=== PATIENT | male | born 1955 | race Caucasian/White ===

== ENCOUNTER 2021-07-31 14:57 | Outpatient (CLI) | payer MEDICARE ==
--- NOTE | 2021-07-31 17:06 | CT Report ---
PROCEDURE: Low Dose Lung Cancer Screen INDICATIONS: SCREENING FOR LUNG CA TECHNIQUE: Noncontrast low-dose 5 mm thick sections acquired from the pulmonary apices to the posterior costophr enic angles. 7 mm thick coronal and sagittal MIP reformats were then acquired. For radiation dose r eduction, the following was used: automated exposure control, adjustment of mA and/or kV according t o patient size. COMPARISON: None. FINDINGS: Lungs and pleura: Scattered subsegmental scarring/atelectasis. No acute consolidation. Diffuse kendell bronchial cuffing suggestive of nonspecific bronchitis and/or reactive airways disease. No suspicious pulmonary nodules identified. Upper lobe predominant centrilobular emphysema. Pleura: No pleural effusion or pneumothorax. Heart: Normal. Normal in size. No pericardial effusion. Severe coronary artery calcifications. Lymph nodes: Normal. Thyroid: Negative Aorta: Normal in size. Scattered atheromatous calcifications seen in the aorta. Pulmonary arteries: Normal. Esophagus: Normal. Bones: Diffuse spondolytic changes and facet arthropathy. No compression fracture. Upper abdomen: Normal. IMPRESSION: No suspicious pulmonary nodules. Lung-RADS 1. Recommend annual screening lung CT. Severe coronary atherosclerosis Lung-RADS 0: Prior chest CT needed for comparison. Part of all of lungs cannot be evaluated. Lung-RADS 1: No nodules or definitely benign nodules, continue annual screening in 12 months. "Nodules with specific calcifications: complete, central, popcorn, concentric rigns and fat containi ng nodules. Lung-RADS 2: Very low likelihood of becoming clinically active CA due to size or lack of growth, con tinue annual screening in 12 months. "Solid nodules: < 6 mm or new < 4 mm. "Part solid nodules: < 6 mm total diameter on baseline. "Non-solid or ground-glass nodules: < 20 mm OR 20 mm or more (unchanged or slowly growing). "Category 3 and 4 nodules unchanged for 3 months or more. Lung-RADS 3: Probably benign; recommend [address] "Solid nodules: 6 to <8 mm at baseline OR new 4 to <6 mm nodule. "Part solid nodules: 6 mm or more with solid component of < 6 mm OR new < 6 mm lesion. "Non-solid or ground-glass nodules: 20 mm or more on baseline, or new. Lung-RADS 4A: Suspicious; recommend 3-month followup CT, or PET-CT when there is a solid component o f 8 mm or more. "Solid nodules: 8 to <15 mm at baseline, OR growing < 8 mm, OR new 6 to <8 mm. "Part-solid nodules: 6 mm ore more with solid component 6 to < 8 mm, OR with new/growing < 4 mm higinio id component. "Endobronchial nodule. Lung-RADS 4B: Suspicious; recommend chest CT with or without contrast, PET-CT and/or biopsy. PET-CT may be used if there is a solid component of 8 mm or more. "Solid nodules: 15 mm or more, OR new/growing 8 mm or more. "Part-solid nodules: solid component of 8 mm or more, OR new/growing solid component of 4 mm or more . Lung-RADS 4X: Category 3-4 nodules with additional features or findings that increase the suspicion for malignancy. Treat the same as 4B. "Examples: spiculated margins, ground-glass nodule doubling in size in 1 year, enlarged lymph nodes. S modifier: Clinically significant or potentially clinically significant findings (not lung CA). C modifier: Patients with prior dx of lung CA who return to screening. Growth: defined as size increase of > 1.5 mm. Reviewed by: Gerson Dee MD on 07/31/2021 5:05 PM PST Approved by: Gerson Dee MD on 07/31/2021 5:05 PM PST Station ID: [id number]
== END 2021-07-31 14:58 | disposition home or self-care (01) ==
LOC: DI 14:57
PROVIDERS: ATTEND Family Medicine
DX: Z12.2 Encounter for screening for malignant neoplasm of respiratory organs (principal); F17.210 Nicotine dependence, cigarettes, uncomplicated; I25.10 Atherosclerotic heart disease of native coronary artery without angina pectoris

== ENCOUNTER 2021-09-15 08:46 | Outpatient (CLI) | payer MEDICARE ==
[2021-09-15 09:29] LABS: BASOPHILS # (AUTO) 0.1 10^3/uL (0.0-0.1); BASOPHILS % (AUTO) 0.5 %; EOSINOPHILS # (AUTO) 0.2 10^3/uL (0.0-0.7); EOSINOPHILS % (AUTO) 2.4 %; HGB - HEMOGLOBIN 14.7 g/dL (14.0-18.0); LYMPHOCYTES # (AUTO) 2.2 10^3/uL (1.5-3.5); LYMPHOCYTES % (AUTO) 23.3 %; MEAN CORPUSCULAR HEMOGLOBIN 32.4 pg (27.0-31.0); MEAN CORPUSCULAR HGB CONC 33.4 g/dL (32.0-36.0); MEAN CORPUSCULAR VOLUME 96.9 fL (80.0-94.0); MEAN PLATELET VOLUME 10.6 fL (7.4-11.4); MONOCYTES # (AUTO) 0.8 10^3/uL (0.0-1.0); MONOCYTES % (AUTO) 8.1 %; NEUTROPHILS # (AUTO) 6.2 10^3/uL (1.5-6.6); NEUTROPHILS % (AUTO) 65.5 %; PLT - PLATELET COUNT 209 10^3/uL (130-450); RED BLOOD COUNT 4.54 10^6/uL (4.70-6.10); RED CELL DISTRIBUTION WIDTH 12.6 % (12.0-15.0); WHITE BLOOD COUNT 9.5 x10^3/uL (4.8-10.8)
[2021-09-15 09:47] LABS: ALBUMIN 4.1 g/dL (3.2-5.5); ALBUMIN/GLOBULIN RATIO 1.1 (1.0-2.2); ALKALINE PHOSPHATASE 60 IU/L (42-121); ALT ALANINE AMINOTRANSFERASE 16 IU/L (10-60); AST ASPARTATE AMINOTRANSFERASE 15 IU/L (10-42); BILIRUBIN,TOTAL 0.8 mg/dL (0.2-1.0); BUN - BLOOD UREA NITROGEN 19 mg/dL (6-20); CALCIUM 9.6 mg/dL (8.5-10.3); CARBON DIOXIDE - CO2 27 mmol/L (21-32); CHLORIDE 101 mmol/L (101-111); CHOL/HDL RATIO 6.3 (<5.0); CHOLESTEROL 183 mg/dL; GFR - MDRD 75 (>89); GLUCOSE 136 mg/dL (70-100); HDL CHOLESTEROL 29 mg/dL; LDL CHOLESTEROL,CALCULATED 120 mg/dL; LDL/HDL RATIO 4.1 (<3.6); POTASSIUM 4.7 mmol/L (3.5-5.0); SODIUM 138 mmol/L (135-145); TOTAL PROTEIN 7.9 g/dL (6.7-8.2); TRIGLYCERIDES 171 mg/dL; VLDL CHOLESTEROL 34 mg/dL
[2021-09-15 10:11] LABS: ESTIMATED AVERAGE GLUCOSE 140 mg/dL (70-100); HEMOGLOBIN A1c% 6.5 % (4.27-6.07)
== END 2021-09-15 08:47 | disposition home or self-care (01) ==
LOC: LAB 08:46
DX: N40.0 Benign prostatic hyperplasia without lower urinary tract symptoms (principal); E11.9 Type 2 diabetes mellitus without complications; Z13.21 Encounter for screening for nutritional disorder; I25.10 Atherosclerotic heart disease of native coronary artery without angina pectoris; Z12.5 Encounter for screening for malignant neoplasm of prostate
CPT/HCPCS: 36415; 80053; 80061; 82306; 83036; 85025; G0103; 83721; 84153

== ENCOUNTER 2022-07-17 07:34 | Outpatient (CLI) | payer OTHER, MEDICARE ==
[2022-07-17 12:11] LABS: BASOPHILS # (AUTO) 0.1 10^3/uL (0.0-0.1); BASOPHILS % (AUTO) 0.7 %; EOSINOPHILS # (AUTO) 0.2 10^3/uL (0.0-0.7); EOSINOPHILS % (AUTO) 1.8 %; HCT - HEMATOCRIT 44.3 % (42.0-52.0); HGB - HEMOGLOBIN 14.7 g/dL (14.0-18.0); LYMPHOCYTES # (AUTO) 2.4 10^3/uL (1.5-3.5); MEAN CORPUSCULAR HEMOGLOBIN 32.6 pg (27.0-31.0); MEAN CORPUSCULAR HGB CONC 33.2 g/dL (32.0-36.0); MEAN CORPUSCULAR VOLUME 98.2 fL (80.0-94.0); MEAN PLATELET VOLUME 11.5 fL (7.4-11.4); MONOCYTES # (AUTO) 1.1 10^3/uL (0.0-1.0); MONOCYTES % (AUTO) 10.3 %; NEUTROPHILS # (AUTO) 7.1 10^3/uL (1.5-6.6); NEUTROPHILS % (AUTO) 64.8 %; PLT - PLATELET COUNT 230 10^3/uL (130-450); RED BLOOD COUNT 4.51 10^6/uL (4.70-6.10); RED CELL DISTRIBUTION WIDTH 13.2 % (12.0-15.0); WHITE BLOOD COUNT 10.9 x10^3/uL (4.8-10.8)
[2022-07-17 12:31] LABS: ESTIMATED AVERAGE GLUCOSE 140 mg/dL (70-100); HEMOGLOBIN A1c% 6.5 % (4.27-6.07)
[2022-07-17 12:56] LABS: ALBUMIN 4.3 g/dL (3.2-5.5); ALBUMIN/GLOBULIN RATIO 1.2 (1.0-2.2); ALKALINE PHOSPHATASE 64 IU/L (42-121); ALT ALANINE AMINOTRANSFERASE 20 IU/L (10-60); AST ASPARTATE AMINOTRANSFERASE 15 IU/L (10-42); BILIRUBIN,TOTAL 0.8 mg/dL (0.2-1.0); BUN - BLOOD UREA NITROGEN 21 mg/dL (6-20); CALCIUM 9.9 mg/dL (8.5-10.3); CARBON DIOXIDE - CO2 27 mmol/L (21-32); CHLORIDE 103 mmol/L (101-111); CHOL/HDL RATIO 5.8 (<5.0); CHOLESTEROL 152 mg/dL; CREATININE 1.1 mg/dL (0.6-1.2); GFR - MDRD 67 (>89); GLUCOSE 141 mg/dL (70-100); HDL CHOLESTEROL 26 mg/dL; LDL CHOLESTEROL,CALCULATED 78 mg/dL; SODIUM 140 mmol/L (135-145); TOTAL PROTEIN 7.8 g/dL (6.7-8.2); TRIGLYCERIDES 241 mg/dL; VLDL CHOLESTEROL 48 mg/dL
== END 2022-07-17 07:35 | disposition home or self-care (01) ==
LOC: LAB.N 07:34
PROVIDERS: ATTEND Family Medicine
DX: E11.9 Type 2 diabetes mellitus without complications (principal); N40.1 Benign prostatic hyperplasia with lower urinary tract symptoms; R39.12 Poor urinary stream; I25.10 Atherosclerotic heart disease of native coronary artery without angina pectoris; Z12.5 Encounter for screening for malignant neoplasm of prostate
CPT/HCPCS: 36415; 80053; 80061; 83036; 83721; 84153; 85025

== ENCOUNTER 2023-01-19 07:16 | Outpatient (CLI) | payer OTHER, MEDICARE ==
[2023-01-19 07:30] LABS: BASOPHILS # (AUTO) 0.1 10^3/uL (0.0-0.1); BASOPHILS % (AUTO) 0.5 %; EOSINOPHILS # (AUTO) 0.2 10^3/uL (0.0-0.7); EOSINOPHILS % (AUTO) 1.6 %; HCT - HEMATOCRIT 45.5 % (42.0-52.0); HGB - HEMOGLOBIN 14.9 g/dL (14.0-18.0); LYMPHOCYTES # (AUTO) 2.5 10^3/uL (1.5-3.5); LYMPHOCYTES % (AUTO) 22.1 %; MEAN CORPUSCULAR HEMOGLOBIN 32.2 pg (27.0-31.0); MEAN CORPUSCULAR HGB CONC 32.7 g/dL (32.0-36.0); MEAN CORPUSCULAR VOLUME 98.3 fL (80.0-94.0); MEAN PLATELET VOLUME 10.7 fL (7.4-11.4); MONOCYTES % (AUTO) 9.1 %; NEUTROPHILS # (AUTO) 7.5 10^3/uL (1.5-6.6); NEUTROPHILS % (AUTO) 66.4 %; PLT - PLATELET COUNT 209 10^3/uL (130-450); RED BLOOD COUNT 4.63 10^6/uL (4.70-6.10); RED CELL DISTRIBUTION WIDTH 13.1 % (12.0-15.0); WHITE BLOOD COUNT 11.3 x10^3/uL (4.8-10.8)
[2023-01-19 07:44] LABS: ALBUMIN 4.2 g/dL (3.2-5.5); ALBUMIN/GLOBULIN RATIO 1.1 (1.0-2.2); BILIRUBIN,TOTAL 0.7 mg/dL (0.2-1.0); CALCIUM 9.5 mg/dL (8.5-10.3); CREATININE 1.2 mg/dL (0.6-1.2); POTASSIUM 5.2 mmol/L (3.5-5.0); TOTAL PROTEIN 7.9 g/dL (6.7-8.2)
[2023-01-19 08:30] LABS: ESTIMATED AVERAGE GLUCOSE 163 mg/dL (70-100); HEMOGLOBIN A1c% 7.3 % (4.27-6.07)
== END 2023-01-19 07:17 | disposition home or self-care (01) ==
LOC: LAB 07:16
PROVIDERS: ATTEND Family Medicine
DX: E11.9 Type 2 diabetes mellitus without complications (principal); N40.0 Benign prostatic hyperplasia without lower urinary tract symptoms; I25.10 Atherosclerotic heart disease of native coronary artery without angina pectoris; Z12.5 Encounter for screening for malignant neoplasm of prostate
CPT/HCPCS: 36415; 80053; 83036; 84153; 85025

== ENCOUNTER 2023-03-26 07:23 | Outpatient (CLI) | payer OTHER, MEDICARE ==
[2023-03-26 07:47] LABS: CHOL/HDL RATIO 5.9 (<5.0); CHOLESTEROL 135 mg/dL; HDL CHOLESTEROL 23 mg/dL; TRIGLYCERIDES 512 mg/dL (48-352)
[2023-03-26 08:00] LABS: LDL CHOLESTEROL,DIRECT 57 mg/dL (75-193); LDLD/HDL RATIO 2.5 (<3.6)
== END 2023-03-26 07:24 | disposition home or self-care (01) ==
LOC: LAB 07:23
PROVIDERS: ATTEND Internal Medicine Cardiovascular Disease
DX: E78.5 Hyperlipidemia, unspecified (principal)
CPT/HCPCS: 36415; 80061; 83721

== ENCOUNTER 2023-05-12 07:01 | Outpatient (CLI) | payer OTHER, MEDICARE ==
[2023-05-12 07:32] LABS: BASOPHILS # (AUTO) 0.1 10^3/uL (0.0-0.1); BASOPHILS % (AUTO) 0.6 %; EOSINOPHILS # (AUTO) 0.2 10^3/uL (0.0-0.7); EOSINOPHILS % (AUTO) 2.2 %; HCT - HEMATOCRIT 45.8 % (42.0-52.0); HGB - HEMOGLOBIN 15.2 g/dL (14.0-18.0); LYMPHOCYTES # (AUTO) 2.4 10^3/uL (1.5-3.5); LYMPHOCYTES % (AUTO) 21.9 %; MEAN CORPUSCULAR HEMOGLOBIN 32.3 pg (27.0-31.0); MEAN CORPUSCULAR HGB CONC 33.2 g/dL (32.0-36.0); MEAN CORPUSCULAR VOLUME 97.2 fL (80.0-94.0); MEAN PLATELET VOLUME 11.2 fL (7.4-11.4); MONOCYTES # (AUTO) 1.1 10^3/uL (0.0-1.0); MONOCYTES % (AUTO) 9.7 %; NEUTROPHILS # (AUTO) 7.3 10^3/uL (1.5-6.6); NEUTROPHILS % (AUTO) 65.2 %; PLT - PLATELET COUNT 203 10^3/uL (130-450); RED BLOOD COUNT 4.71 10^6/uL (4.70-6.10); WHITE BLOOD COUNT 11.1 x10^3/uL (4.8-10.8)
[2023-05-12 10:49] LABS: ESTIMATED AVERAGE GLUCOSE 148 mg/dL (70-100); HEMOGLOBIN A1c% 6.8 % (4.27-6.07)
== END 2023-05-12 07:02 | disposition home or self-care (01) ==
LOC: LAB 07:01
PROVIDERS: ATTEND Family Medicine
DX: E11.9 Type 2 diabetes mellitus without complications (principal); D75.89 Other specified diseases of blood and blood-forming organs
CPT/HCPCS: 36415; 83036; 85025

== ENCOUNTER 2023-06-19 10:50 | Emergency (ER) | payer MEDICARE, OTHER ==
[2023-06-19 11:31] LABS: BASOPHILS # (AUTO) 0.1 10^3/uL (0.0-0.1); BASOPHILS % (AUTO) 0.6 %; EOSINOPHILS # (AUTO) 0.1 10^3/uL (0.0-0.7); EOSINOPHILS % (AUTO) 1.1 %; HCT - HEMATOCRIT 44.3 % (42.0-52.0); HGB - HEMOGLOBIN 14.7 g/dL (14.0-18.0); LYMPHOCYTES # (AUTO) 2.3 10^3/uL (1.5-3.5); LYMPHOCYTES % (AUTO) 21.8 %; MEAN CORPUSCULAR HEMOGLOBIN 32.4 pg (27.0-31.0); MEAN CORPUSCULAR HGB CONC 33.2 g/dL (32.0-36.0); MEAN CORPUSCULAR VOLUME 97.6 fL (80.0-94.0); MEAN PLATELET VOLUME 10.5 fL (7.4-11.4); MONOCYTES # (AUTO) 0.6 10^3/uL (0.0-1.0); MONOCYTES % (AUTO) 6.1 %; NEUTROPHILS # (AUTO) 7.3 10^3/uL (1.5-6.6); NEUTROPHILS % (AUTO) 70.2 %; PLT - PLATELET COUNT 207 10^3/uL (130-450); RED BLOOD COUNT 4.54 10^6/uL (4.70-6.10); WHITE BLOOD COUNT 10.4 x10^3/uL (4.8-10.8)
[2023-06-19 11:44] LABS: ALBUMIN 4.4 g/dL (3.2-5.5); ALBUMIN/GLOBULIN RATIO 1.4 (1.0-2.2); BILIRUBIN,TOTAL 0.4 mg/dL (0.2-1.0); CALCIUM 9.3 mg/dL (8.5-10.3); CREATININE 1.2 mg/dL (0.6-1.3); POTASSIUM 4.6 mmol/L (3.5-4.5); TOTAL PROTEIN 7.5 g/dL (6.4-8.9)
--- NOTE | 2023-06-19 12:07 | XRAY Report ---
PROCEDURE: Chest 1 View X-Ray INDICATIONS: Chest Pain TECHNIQUE: One view of the chest was acquired. COMPARISON: None FINDINGS: Surgical changes and devices: None. Lungs and pleura: No pleural effusions or pneumothorax. Lungs are clear. Mediastinum: Mediastinal contours appear normal. Heart size is normal. Bones and chest wall: No suspicious bony lesions. Overlying soft tissues appear unremarkable. IMPRESSION: No acute cardiopulmonary findings Reviewed by: Richard Ceja MD on 06/19/2023 11:05 AM [place] Approved by: Richard Ceja MD on 06/19/2023 11:05 AM [place] Station ID: [id number]
[2023-06-19 13:22] VITALS: O2SAT 100
[2023-06-19 13:22] LABS: BILIRUBIN,URINE NEGATIVE (NEGATIVE); GLUCOSE, URINE (UA) NEGATIVE (NEGATIVE); KETONES,URINE (UA) NEGATIVE (NEGATIVE); LEUKOCYTE ESTERASE, URINE NEGATIVE (NEGATIVE); NITRITE,URINE NEGATIVE (NEGATIVE); OCCULT BLOOD,URINE NEGATIVE (NEGATIVE); PROTEIN,URINE NEGATIVE (NEGATIVE); UROBILINOGEN,URINE 0.2 (NORMAL) E.U./dL (NORMAL)
[2023-06-19 13:24] LABS: CLARITY,URINE CLEAR (CLEAR)
[2023-06-19] MEDS ORDERED: iohexoL-300 100 ML VIAL IVP ONE (14:32)
--- NOTE | 2023-06-19 14:34 | CT Report ---
PROCEDURE: Head W/O Stroke Protocol INDICATIONS: recurrent dizziness TECHNIQUE: Helical axial CT of the brain was obtained without contrast and reformatted in multiple p lanes. COMPLIANCE STATEMENTS: Radiation dose reduction was achieved using automated exposure control or adj ustment of mA and/or kV according to patient size. This study fulfills neurological imaging criteria for inclusion or exclusion of acute stroke therapies based on available published neurological imagi ng guidelines. COMPARISON: None. FINDINGS: CSF spaces: Ventricles are appropriate in size and position. No hydrocephalus. Basal cisterns unre markable. Brain: No midline shift. No intracranial masses or hemorrhage. Bazan-white matter interface is norm al. Skull and face: Calvarium and skull base are unremarkable without suspicious lesion. Sinuses: Mild right maxillary sinus mucosal thickening with debris IMPRESSION: Unremarkable CT of the brain. Mild right maxillary mucosal sinus disease Note: Critical results were discussed with patient's physician in the ER at 06/19/2023 1:32:22 PM [place] time. Reviewed by: Richard Ceja MD on 06/19/2023 1:33 PM AKDT Approved by: Richard Ceja MD on 06/19/2023 1:33 PM AKDT Station ID: [id number]
--- NOTE | 2023-06-19 14:36 | CT Report ---
PROCEDURE: CT Angio Head/Neck INDICATIONS: persistent dizziness, neck discomfort TECHNIQUE: Helical axial CT of the head and neck was obtained during the arterial phase of a intrave nous contrast injection utilizing an angiographic protocol. Multiplanar traditional and MIP reformat s were also obtained. COMPLIANCE STATEMENTS: Any estimate of proximal ICA stenosis was calculated using NASCET guidelines. Dose reduction techniques included either automated exposure control or adjustment of exposure maranda eters. COMPARISON: None. FINDINGS: Cerebral CT Angiogram: Internal carotid arteries: No acute findings. Intracranial ICA are patent with no significant steno sis. No occlusion. No aneurysm. Anterior cerebral arteries: Unremarkable. No significant stenosis. No occlusion. No aneurysm. Middle cerebral arteries: Unremarkable. No significant stenosis. No occlusion. No aneurysm. Posterior cerebral arteries: Unremarkable. No significant stenosis. No occlusion. No aneurysm. Basilar artery: Unremarkable. No significant stenosis. No occlusion. No aneurysm. Vertebral arteries: Unremarkable as visualized. Dural venous sinuses: Unremarkable given phase of enhancement. Other: Arterial phase appearance of the brain parenchyma is unremarkable. Neck CT Angiogram: Internal carotid arteries: Mild atherosclerotic plaque noted in the proximal left ICA without hemodyn amically significant stenosis utilizing NASCET criteria. Common carotid arteries: Unremarkable. No significant stenosis. No dissection or occlusion. External carotid arteries: Unremarkable. No occlusion. Vertebral arteries: Unremarkable. No significant stenosis. No dissection or occlusion. Incidental note is made of left vertebral artery origin directly from the aortic arch, an anatomic variant. Aortic Arch and Mediastinum: Partially visualized aortic arch unremarkable without evidence of aneury sm. Origins of the great vessels unremarkable. Other: Arterial phase soft tissues of the neck are unremarkable. IMPRESSION: Unremarkable CT angiogram of the head and neck. No large vessel occlusion, aneurysm or vascular malfo rmation Reviewed by: Richard Ceja MD on 06/19/2023 1:35 PM AKDT Approved by: Richard Ceja MD on 06/19/2023 1:35 PM AKDT Station ID: [id number]
--- NOTE | 2023-06-19 14:44 | ED Physician Documentation ---
History of Present Illness - Stated complaint Stated Complaint: LIGHT HEADED - Chief complaint Chief Complaint: Cardiac - History obtained from History obtained from: Patient, Family - Additonal information Additional information: This is a 68-year-old male who has a hx/o COPD, high cholesterol, DM2, GERD, who presents for about a week long history of feeling lightheaded, generally weak and tired. He also has noticed an achy and somewhat compressed feeling to the left shoulder. This feeling is nonexertional, and nonradiating. He does not have any shortness of breath, no other chest pain. He has not had a fever or chills, no difficulty breathing, no cough or other URI symptoms, no abdominal pain nausea vomiting or diarrhea. He states this morning he had a burning type sensation on the outside of his neck bilaterally though that has since gone away. He feels lightheaded and though perhaps his left ear is congested. He thought perhaps it was vertigo but it does not seem to worsen with turning his head side to side or if he stands up abruptly he does not feel like he will pass out. He has not had syncope or near syncope. He has never had similar symptoms in the past. He does not smoke cigarettes, but denies any other significant medical history. He does note that his father and a brother both had heart attacks at a younger age than him. Review of Systems Constitutional: reports: Fatigue. denies: Fever, Chills, Myalgias, Weight Loss, Sweats Ears: reports: Other (left ear fullness/congestion). denies: Loss of hearing, Ear pain, Drainage/discharge, Tinnitus/ringing, Foreign body Nose: reports: Congestion (chronic sinus congestion). denies: Rhinorrhea / runny nose Throat: reports: Reviewed and negative Cardiac: denies: Chest pain / pressure, Palpitations, Pedal edema, Calf pain Respiratory: reports: Reviewed and negative GI: reports: Reviewed and negative : reports: Reviewed and negative Skin: reports: Reviewed and negative Musculoskeletal: reports: Neck pain (on the outside of the neck bilat) Neurologic: reports: Generalized weakness. denies: Focal weakness, Numbness, Difficulty speaking, Near syncope, Syncope, Seizure, Confused, Altered mental status, Unresponsive, Headache, Head injury, LOC Psychiatric: reports: Reviewed and negative Endocrine: reports: Reviewed and negative PD PAST MEDICAL HISTORY - Past Medical History Past Medical History: Yes Cardiovascular: High cholesterol Respiratory: COPD Neuro: None Endocrine/Autoimmune: Type 2 diabetes GI: GERD : Benign prostate hypertrophy HEENT: Other Psych: None Musculoskeletal: None Derm: None - Past Surgical History Past Surgical History: Yes General: Cholecystectomy Ortho: Hip replacement HEENT: Tonsil/Adenoidectomy - Present Medications Home Medications: Ambulatory Orders Medication Instructions Recorded Confirmed Albuterol Sulf [Ventolin Hfa 1 - 2 puffs IH Q4HR PRN 06/19/23 06/19/23 Inhaler] Aspirin EC [Ecotrin] 81 mg PO DAILY 06/19/23 06/19/23 Cetirizine [ZyrTEC] 10 mg PO DAILY #30 tablet 06/19/23 Fluticasone [Flonase] 1 spray NS DAILY #16 gm 06/19/23 Meclizine [Antivert] 25 mg PO Q6H #30 tablet 06/19/23 Omeprazole 40 mg PO DAILY 06/19/23 06/19/23 Rosuvastatin Calcium [Crestor] 10 mg PO HS 06/19/23 06/19/23 Semaglutide [Ozempic] 1 mg SQ Q7D 06/19/23 06/19/23 Tiotropium [place] [Spiriva 2 puffs IH DAILY 06/19/23 06/19/23 Respimat] - Allergies Allergies/Adverse Reactions: Allergies Allergy/AdvReac Type Severity Reaction Status Date / Time Penicillins Allergy Rash Verified 06/19/23 11:00 azithromycin AdvReac Nausea Verified 06/19/23 11:00 erythromycin base AdvReac Nausea Verified 06/19/23 11:00 - Social History Does the pt smoke?: Yes Smoking Status: Current every day smoker Does the pt drink ETOH?: Yes Does the pt have substance abuse?: Yes Substance Use and Type: CBD oil / Products - Immunizations Immunizations are current?: Yes PD ED PE NORMAL - Vitals Vital signs reviewed: Yes - General General: Alert and oriented X 3, No acute distress, Well developed/nourished - HEENT HEENT: Atraumatic, Moist mucous membranes, Other (mild fluid behind both TMs L>R) - Neck Neck: Supple, no meningeal sign, No bony TTP, No adenopathy, Thyroid normal, No JVD, No bruit - Cardiac Cardiac: RRR, No murmur, Strong equal pulses - Respiratory Respiratory: No respiratory distress, Clear bilaterally - Abdomen Abdomen: Normal bowel sounds, Soft, Non tender, Non distended - Derm Derm: Normal color, Warm and dry, No rash - Extremities Extremities: No deformity, No tenderness to palpate, Normal ROM s pain, No edema, No calf tenderness / cord - Neuro Neuro: Alert and oriented X 3, 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 Relevant findings are: Rate: Rate (enter#) (80) Rhythm: NSR Rhine: Normal Intervals: Normal [place] QRS: Normal Ischemia: Normal ST segments Computer interpretation: Agree with computer - Labs Labs: Laboratory Tests 06/19/23 06/19/23 06/19/23 11:27 11:27 13:02 WBC 10.4 RBC 4.54 L Hgb 14.7 Hct 44.3 MCV 97.6 H MCH 32.4 H MCHC 33.2 RDW 13.0 Plt Count 207 MPV 10.5 Neut # (Auto) 7.3 H Lymph # (Auto) 2.3 [place] # (Auto) 0.6 Eos # (Auto) 0.1 Baso # (Auto) 0.1 Absolute Nucleated RBC 0.00 Nucleated RBC % 0.0 Sodium 136 Potassium 4.6 H Chloride 103 Carbon Dioxide 26 Anion Gap 7.0 BUN 19 Creatinine 1.2 Estimated GFR (MDRD) 60 L Glucose 197 H Calcium 9.3 Total Bilirubin 0.4 AST 12 ALT 16 Alkaline Phosphatase 62 Troponin I High Sens 13.0 10.0 Total Protein 7.5 Albumin 4.4 Globulin 3.1 Albumin/Globulin Ratio 1.4 Lipase 56 Urine Color Urine Clarity Urine pH Ur Specific [place] Urine Protein Urine Glucose (UA) Urine Ketones Urine Occult Blood Urine Nitrite Urine Bilirubin Urine Urobilinogen Ur Leukocyte Esterase Ur Microscopic Review Urine Culture Comments 10/21/23 13:03 WBC RBC Hgb Hct MCV MCH MCHC RDW Plt Count MPV Neut # (Auto) Lymph # (Auto) [place] # (Auto) Eos # (Auto) Baso # (Auto) Absolute Nucleated RBC Nucleated RBC % Sodium Potassium Chloride Carbon Dioxide Anion Gap BUN Creatinine Estimated GFR (MDRD) Glucose Calcium Total Bilirubin AST ALT Alkaline Phosphatase Troponin I High Sens Total Protein Albumin Globulin Albumin/Globulin Ratio Lipase Urine Color YELLOW Urine Clarity CLEAR Urine pH 6.0 Ur Specific [place] <=1.005 Urine Protein NEGATIVE Urine Glucose (UA) NEGATIVE Urine Ketones NEGATIVE Urine Occult Blood NEGATIVE Urine Nitrite NEGATIVE Urine Bilirubin NEGATIVE Urine Urobilinogen 0.2 (NORMAL) Ur Leukocyte Esterase NEGATIVE Ur Microscopic Review NOT INDICATED Urine Culture Comments NOT INDICATED - Rads (name of study) No standard instances Relevant Findings:: Final report received PD Medical Decision Making - ED course Complexity details: reviewed results, re-evaluated patient, considered differential, d/w patient ED course: 68-year-old male with past medical history as listed below presented with about a week long history of lightheadedness weakness fatigue. He also had an achy and compress feeling to his left shoulder. Differentials considered included anginal equivalent, viral syndrome, dehydration, electrolyte abnormalities, less likely stroke or carotid stenosis. We obtained labs which are generally reassuring, CBC and CMP are essentially normal, his high-sensitivity troponin is negative x2, chest x-ray is negative and EKG shows no acute ischemic changes. I did proceed with CT head and CT a of the head and neck given his Somewhat vague neck symptoms accompanied by lightheadedness and these studies were reassuring, no flow limiting stenosis. Unclear what is causing patient's constellation of symptoms at this time, it does not appear to be ACS or acute stroke. It may be a viral syndrome, or secondary to mild vestibular neuritis though I think this i s less likely. We will try meclizine, cetirizine, and flonase for his symptoms. 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 Return precautions reviewed if new or worsening symptoms. Departure - Departure Disposition: 01 Home, Self Care Clinical Impression: Light-headed feeling Condition: Good Instructions: ED Chest Pain Atypical Unkn Cause, ED Dizziness UKO Prescriptions: Meclizine [Antivert] 25 mg PO Q6H #30 tablet Fluticasone [Flonase] 1 spray NS DAILY #16 gm Cetirizine [ZyrTEC] 10 mg PO DAILY #30 tablet Comments: [place], your workup here was reassuring. You have some chronic sinus congestion primarily on the right side. You head and neck CTs otherwise look normal. Your chest xray and labs are stable. Your workup today Does not point to the exact cause of your symptoms but it does not appear to be due to an emergent condition today. Sometimes viral illnesses, sinus and eustachian tube congestion, mild dehydration, can cause similar symptoms. I recommend that you rest today, stay well-hydrated, consider trying a [id number] allergy medication such as cetirizine, and a nasal spray such as Flonase to help with your sinus symptoms and ear congestion. Follow-up with your primary doctor within the next week or 2, return if worsening symptoms. Your medications were sent to [facility]. Forms: PCP List Discharge Date/Time: 06/19/23 14:50
[2023-06-19 14:59] VITALS: BP 130/72
== END 2023-06-19 14:50 | disposition home or self-care (01) ==
LOC: ED 10:50
DX: R42 Dizziness and giddiness (principal); E11.9 Type 2 diabetes mellitus without complications; E78.00 Pure hypercholesterolemia, unspecified; J44.9 Chronic obstructive pulmonary disease, unspecified; Z79.82 Long term (current) use of aspirin; Z79.899 Other long term (current) drug therapy; F17.200 Nicotine dependence, unspecified, uncomplicated
CPT/HCPCS: 36415; 70450; 70496; 70498; 71045; 80053; 81003; 83690; 84484; 85025; 93005; 99284; Q9967; 81001; 87086

== ENCOUNTER 2023-10-19 02:36 | Outpatient (CLI) | payer MEDICARE, OTHER | END 2023-10-19 02:37 | disposition short-term general hospital (02) | LOC: EMS 02:36 | DX: I21.3 ST elevation (STEMI) myocardial infarction of unspecified site (principal) | CPT/HCPCS: A0425; A0427 ==

== ENCOUNTER 2023-11-03 04:37 | Outpatient (CLI) | payer OTHER, MEDICARE | END 2023-11-03 04:38 | disposition short-term general hospital (02) | LOC: EMS 04:37 | DX: R42 Dizziness and giddiness (principal) | CPT/HCPCS: A0425; A0429 ==

== ENCOUNTER 2023-11-16 09:53 | Outpatient (CLI) | payer OTHER, MEDICARE | END 2023-11-16 09:54 | disposition home or self-care (01) | LOC: LAB 09:53 | PROVIDERS: ATTEND Specialist | DX: R97.20 Elevated prostate specific antigen [PSA] (principal) | CPT/HCPCS: 36415; 84153 ==

== ENCOUNTER 2023-12-29 12:15 | Outpatient (CLI) | payer OTHER ==
--- NOTE | 2023-12-29 19:56 | XRAY Report ---
PROCEDURE: Lumbar Spine 2-3V INDICATIONS: LOW BACK PAIN TECHNIQUE: 2 views of the lumbar spine were acquired. COMPARISON: Lung cancer screening chest CT 07/31/2021. FINDINGS: Bones: 5 [id number] vertebrae are present. Mild scoliosis. Mild height loss at L1. No suspiciou s bony lesions. Left hip arthroplasty. Soft tissues: Overlying bowel gas pattern is normal. No suspicious soft tissue calcifications. IMPRESSION: Question mild L1 compression fracture. A Schmorl's node could result in this appearance. This can be further evaluated with CT or MRI lumbar spine. Reviewed by: Zion Hebert MD on 12/29/2023 7:55 PM PDT Approved by: Zion Hebert MD on 12/29/2023 7:55 PM PDT Station ID: [id number]
== END 2023-12-29 12:16 | disposition home or self-care (01) ==
LOC: DI 12:15
PROVIDERS: ATTEND Family Medicine
DX: M54.16 Radiculopathy, lumbar region (principal)

== ENCOUNTER 2024-02-03 07:08 | Outpatient (CLI) | payer OTHER ==
[2024-02-03 07:28] LABS: BASOPHILS # (AUTO) 0.1 10^3/uL (0.0-0.1); BASOPHILS % (AUTO) 0.5 %; EOSINOPHILS # (AUTO) 0.2 10^3/uL (0.0-0.7); EOSINOPHILS % (AUTO) 1.9 %; HCT - HEMATOCRIT 42.6 % (42.0-52.0); LYMPHOCYTES # (AUTO) 2.8 10^3/uL (1.5-3.5); LYMPHOCYTES % (AUTO) 24.6 %; MEAN CORPUSCULAR HEMOGLOBIN 32.3 pg (27.0-31.0); MEAN CORPUSCULAR HGB CONC 32.9 g/dL (32.0-36.0); MEAN CORPUSCULAR VOLUME 98.2 fL (80.0-94.0); MONOCYTES # (AUTO) 1.1 10^3/uL (0.0-1.0); MONOCYTES % (AUTO) 9.8 %; NEUTROPHILS # (AUTO) 7.2 10^3/uL (1.5-6.6); PLT - PLATELET COUNT 225 10^3/uL (130-450); RED BLOOD COUNT 4.34 10^6/uL (4.70-6.10); RED CELL DISTRIBUTION WIDTH 12.7 % (12.0-15.0); WHITE BLOOD COUNT 11.4 x10^3/uL (4.8-10.8)
[2024-02-03 07:37] LABS: BUN - BLOOD UREA NITROGEN 24 mg/dL (6-20); CALCIUM 9.8 mg/dL (8.5-10.3); CARBON DIOXIDE - CO2 29 mmol/L (21-32); CHLORIDE 102 mmol/L (101-111); CHOLESTEROL 151 mg/dL; CREATININE 1.4 mg/dL (0.6-1.3); GFR - MDRD 50 (>89); GLUCOSE 152 mg/dL (74-104); HDL CHOLESTEROL 30 mg/dL; POTASSIUM 4.8 mmol/L (3.5-4.5); SODIUM 137 mmol/L (135-145); TRIGLYCERIDES 465 mg/dL (48-352)
[2024-02-03 07:58] LABS: LDL CHOLESTEROL,DIRECT 56 mg/dL (75-193); LDLD/HDL RATIO 1.9 (<3.6)
== END 2024-02-03 07:09 | disposition home or self-care (01) ==
LOC: LAB 07:08
PROVIDERS: ATTEND Internal Medicine Cardiovascular Disease
DX: I25.10 Atherosclerotic heart disease of native coronary artery without angina pectoris (principal)
CPT/HCPCS: 36415; 80048; 80061; 83721; 85025

== ENCOUNTER 2024-02-25 08:00 | Outpatient (CLI) | payer OTHER, MEDICARE | END 2024-02-25 23:59 | disposition home or self-care (01) | LOC: LAB 08:00 | PROVIDERS: ATTEND Physician Assistant | DX: N41.9 Inflammatory disease of prostate, unspecified (principal) | CPT/HCPCS: 87086 ==

== ENCOUNTER 2024-02-25 11:03 | Outpatient (CLI) | payer OTHER ==
[2024-02-25 11:12] LABS: BASOPHILS # (AUTO) 0.1 10^3/uL (0.0-0.1); BASOPHILS % (AUTO) 0.5 %; EOSINOPHILS # (AUTO) 0.1 10^3/uL (0.0-0.7); EOSINOPHILS % (AUTO) 0.7 %; HCT - HEMATOCRIT 44.2 % (42.0-52.0); HGB - HEMOGLOBIN 14.6 g/dL (14.0-18.0); LYMPHOCYTES # (AUTO) 2.2 10^3/uL (1.5-3.5); MEAN CORPUSCULAR HEMOGLOBIN 32.4 pg (27.0-31.0); MEAN CORPUSCULAR VOLUME 98.2 fL (80.0-94.0); MEAN PLATELET VOLUME 10.5 fL (7.4-11.4); MONOCYTES % (AUTO) 7.7 %; NEUTROPHILS # (AUTO) 9.4 10^3/uL (1.5-6.6); NEUTROPHILS % (AUTO) 73.7 %; PLT - PLATELET COUNT 226 10^3/uL (130-450); RED CELL DISTRIBUTION WIDTH 12.5 % (12.0-15.0); WHITE BLOOD COUNT 12.7 x10^3/uL (4.8-10.8)
== END 2024-02-25 11:04 | disposition home or self-care (01) ==
LOC: LAB 11:03
PROVIDERS: ATTEND Physician Assistant
DX: N41.9 Inflammatory disease of prostate, unspecified (principal)
CPT/HCPCS: 36415; 84153; 84154; 85025

== ENCOUNTER 2024-03-31 07:12 | Outpatient (CLI) | payer OTHER ==
[2024-03-31 08:07] LABS: CHOLESTEROL 151 mg/dL; HDL CHOLESTEROL 30 mg/dL; TRIGLYCERIDES 413 mg/dL
[2024-03-31 08:27] LABS: LDL CHOLESTEROL,DIRECT 55 mg/dL (75-193); LDLD/HDL RATIO 1.8 (<3.6)
== END 2024-03-31 07:13 | disposition home or self-care (01) ==
LOC: LAB 07:12
PROVIDERS: ATTEND Internal Medicine Cardiovascular Disease
DX: E78.5 Hyperlipidemia, unspecified (principal)
CPT/HCPCS: 36415; 80061; 83721

== ENCOUNTER 2024-04-14 15:02 | Outpatient (CLI) | payer OTHER ==
--- NOTE | 2024-04-17 12:05 | XRAY Report ---
PROCEDURE: Knee 4+V BL INDICATIONS: BILATERAL KNEE PAIN TECHNIQUE: 4 views of the knee(s) were acquired. COMPARISON: None. FINDINGS: Bones: No fractures or dislocations. No suspicious bony lesions. Tricompartmental joint space nancy rowing with associated osteophytosis. Soft tissues: No knee joint effusion. No suspicious soft tissue calcifications or masses. IMPRESSION: No acute bony abnormality. Mild to moderate tricompartmental osteoarthritis. Kellgren-Bucky scale of osteoarthritis: 2. Reviewed by: Benito Gomez MD on 04/17/2024 12:03 PM PDT Approved by: Benito Gomez MD on 04/17/2024 12:03 PM PDT Station ID: [id number]
== END 2024-04-14 15:03 | disposition home or self-care (01) ==
LOC: DI 15:02
PROVIDERS: ATTEND Physician Assistant
DX: M25.561 Pain in right knee (principal); M25.562 Pain in left knee